=== PATIENT | male | born 1995 | race Caucasian/White ===

== ENCOUNTER 2020-07-06 18:06 | Emergency (ER) | payer MEDICAID ==
[~2020-07-06] VITALS: Ht 182.9 cm; Wt 59.0 kg
[2020-07-06 18:15] VITALS: BP 123/77
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
[2020-07-06 18:40] VITALS: BP 123/77
--- NOTE | 2020-07-06 18:40 | NUR ---
ED Nurse Note: Pt cleared by ERPA for discharge. DC instructions was given and explained to pt and verbalized understanding of teachings. All medical deviecs such as ID band removed. Pt is AAO x4, ambulatory and left with all personal belongings.
== END 2020-07-06 18:40 | disposition home or self-care (01) ==
LOC: EMR 18:26
DX: S91.311D Laceration without foreign body, right foot, subsequent encounter (principal); V49.9XXD Car occupant (driver) (passenger) injured in unspecified traffic accident, subsequent encounter; Z48.02 Encounter for removal of sutures
CPT/HCPCS: 99282